=== PATIENT | male | born 1985 | race African-American/Black ===

== ENCOUNTER 2018-01-17 11:33 | Emergency (ER) | payer MEDICAID ==
[~2018-01-17] VITALS: Ht 175.3 cm; Wt 74.8 kg
[2018-01-17] MEDS ORDERED: VIBRAMYCIN100 MG ORAL (12:08)
--- NOTE | 2018-01-17 12:10 | Emergency Room Report ---
History of Present Illness General Chief Complaint: General Complaint Source: Patient Present Illness HPI 32 yo male patient presents to ER sent from clinic following positive STD results. Patient reports tested positive for gonorrhea. Patient reports allergy to penicillin, patient reports clinic did not have medication to treat him. Patient reports breaks out in rash when takes penicillin medication. Denies pain with urination, frequency, urgency, hematuria. Denies genital rash. Reports recent sexual encounter where condom broke. Denies fever, chest pain, SOB, rash. Allergies: Coded Allergies: PENICILLINS (Verified Allergy, Unknown, 01/17/18) Patient History Past Medical History: see triage record Reviewed Nursing Documentation: PMH: Agreed, PSxH: Agreed Nursing Documentation-PMH Past Medical History: No Stated History Review of Systems All Other Systems: negative except mentioned in HPI Physical Exam Vital Signs Date Time Temp Pulse Resp B/P (MAP) Pulse Ox O2 Delivery O2 Flow Rate FiO2 01/17/18 11:38 98.5 99 18 120/71 95 Room Air 98.4 Sp02 EP Interpretation: reviewed, normal General Appearance: well appearing, no apparent distress, alert, GCS 15, non- toxic Head: normocephalic, atraumatic Eyes: bilateral eye normal inspection, bilateral eye PERRL ENT: hearing grossly normal, normal pharynx, no angioedema, normal voice, uvula midline, moist mucus membranes Neck: full range of motion Respiratory: lungs clear, normal breath sounds, no rhonchi, no respiratory distress, no accessory muscle use, no wheezing, speaking full sentences Cardiovascular #1: regular rate, rhythm, no edema Musculoskeletal: back normal, digits/nails normal, gait/station normal, normal range of motion, non-tender Neurologic: alert, oriented x3, responsive, motor strength/tone normal, sensory intact Psychiatric: mood/affect normal Skin: no rash Lymphatic: no adenopathy Medical Decision Making PA Attestation Dr. Langley is my supervising Physician whom patient management has been discussed with. Diagnostic Impression: Primary Impression: Sexually transmitted infection ER Course Pt. presents to the ED c/o positive gonorrhea test. Multiple differentials considered. Patient is here with positive Gonorrhea test. Vital signs: are WNL, pt. is afebrile ER COURSE: Patient reports clinic provided him with no medication following positive STI testing. Reports sent him straight to [facility]. Azithromycin provided in ER. Discuss alternative treatments for penicillin allergic patients with Dr. Langley, instructed to place patient on Doxycycline BID for 7 days. Patient ready for discharge. DISCHARGE: -Rx provided for Doxycycline Advised to use safe sex practices including but not limited to use of condoms. Instructed patient to follow up with STI clinic and/or PCP for future STI treatment and prevention. Instructed patient to inform partner of need for treatment to prevent future infection. Patient is resting comfortably, in no acute distress, nontoxic appearing, talking without difficulty, smiling, watching TV on iPad. Patient to take medications as instructed Will provide with patient care instructions and any necessary prescriptions. Care plan and follow-up instructions provided. Patient instructed to follow-up with primary care provider in 3 - 5 days. Patient questions asked and answered. Patient reports understanding and agreement to treatment plan. ER precautions given. Patient instructed to return to ER immediately for any new or worsening of symptoms including but not limited to increasing SOB, persistent fever. Last Vital Signs Date Time Temp Pulse Resp B/P (MAP) Pulse Ox O2 Delivery O2 Flow Rate FiO2 01/17/18 11:38 98.5 99 18 120/71 95 Room Air 98.4 Disposition: HOME, SELF-CARE Condition: Stable Scripts Doxycycline Hyclate* (VIBRAMYCIN*) 100 Mg Capsule 100 MG ORAL EVERY 12 HOURS for 7 Days, #14 CAP 0 Refills Prov: Miguel Borges 01/17/18 Patient Instructions: Sexually Transmitted Disease, [id number] Additional Instructions: Followup with primary care provider in 3 -5 days. Followup with STI for further treatment. Sexual partners must be informed of need for testing and treatment as well. Wear condoms to help prevent STI risk. Take medications as directed. Patient questions asked and answered. ER precautions given, patient instructed to return to ER immediately for any new or worsening of symptoms. Miguel Borges Jan 17, 2018 12:10
[2018-01-17 12:32] VITALS: BP 123/71
[2018-01-17 12:36] VITALS: BP 120/71
[2018-01-17] MEDS: Azithromycin 250mg tab ORAL ONE (12:40)
== END 2018-01-17 12:47 | disposition home or self-care (01) ==
LOC: EMR 12:17
DX: A64 Unspecified sexually transmitted disease (principal); Z88.0 Allergy status to penicillin
CPT/HCPCS: 99283